=== PATIENT | male | born 1960 | race African-American/Black ===

== ENCOUNTER 2016-11-29 07:59 | Emergency (ER) | payer SELFPAY ==
[~2016-11-29] VITALS: Ht 188 cm; Wt 122.0 kg
[~2016-11-29 07:59] MED LIST: NO HOME MEDS
[2016-11-29 08:21] VITALS: BP 149/83
[2016-11-29] MEDS ORDERED: BALANCED SALT IRRIG SOLN 15ML IO ONE (09:30)
[2016-11-29] MEDS ORDERED: FLUORESCEIN SODIUM 1MG/STRIP OP ONE ×2 (09:30→10:30)
[2016-11-29] MEDS ORDERED: TETRACAINE 0.5% OPHTH DROPS 4ML OP ONE (09:30)
== END 2016-11-29 11:02 | disposition home or self-care (01) ==
LOC: ER 10:39
DX: H57.8 Other specified disorders of eye and adnexa (principal); Z88.0 Allergy status to penicillin
CPT/HCPCS: 99284; X7700; Z7610

== ENCOUNTER 2017-01-14 20:12 | Emergency (ER) | payer SELFPAY ==
[~2017-01-14] VITALS: Ht 188 cm; Wt 121.0 kg
[2017-01-15] MEDS ORDERED: TETRACAINE 0.5% OPHTH DROPS 4ML OP ONE (00:30)
[2017-01-15] MEDS ORDERED: FLUORESCEIN SODIUM 1MG/STRIP OP ONE (00:30)
[2017-01-15 02:15] VITALS: BP 118/78
== END 2017-01-15 02:40 | disposition home or self-care (01) ==
LOC: ER 20:12
DX: H43.391 Other vitreous opacities, right eye (principal); Z88.0 Allergy status to penicillin
CPT/HCPCS: 99283

== ENCOUNTER 2017-03-30 10:53 | Emergency (ER) | payer MEDICAID, OTHER ==
[~2017-03-30] VITALS: Ht 188 cm; Wt 123.0 kg
[2017-03-30 12:37] VITALS: BP 138/79
== END 2017-03-30 14:30 | disposition home or self-care (01) ==
LOC: ER 14:15
DX: R42 Dizziness and giddiness (principal); Z88.0 Allergy status to penicillin
CPT/HCPCS: 99283

== ENCOUNTER 2019-03-30 17:55 | Emergency (ER) | payer MEDICAID, OTHER ==
[~2019-03-30] VITALS: Ht 190.5 cm; Wt 116.0 kg
[2019-03-30 18:23] VITALS: BP 132/92
== END 2019-03-30 21:59 | disposition left against medical advice (07) ==
LOC: ER 18:32
DX: R07.9 Chest pain, unspecified (principal); Z53.21 Procedure and treatment not carried out due to patient leaving prior to being seen by health care provider

== ENCOUNTER 2019-04-15 02:09 | Emergency (ER) | payer MEDICAID ==
[~2019-04-15] VITALS: Ht 188 cm; Wt 123.0 kg
[2019-04-15] MEDS ORDERED: MAGNESIUM/ALUMINUM HYDROXIDE/SIMETHICONE 30ML UDC PO ONE (04:30)
[2019-04-15] MEDS ORDERED: ASPIRIN 325MG TABLET PO ONE (04:30)
[2019-04-15] MEDS ORDERED: VISCOUS LIDOCAINE 2% 15 ML UDC PO ONE (04:30)
[2019-04-15 04:59] LABS: BASOPHILS % 0.8 % (0.0-2.0); EOSINOPHILS % 3.6 % (0.0-5.0); HEMATOCRIT. 36.3 % (42.0-52.0); HEMOGLOBIN. 11.8 g/dL (14.0-18.0); LYMPHOCYTES % 25.1 % (20.0-50.0); MEAN CORPUSCULAR HEMOGLOBIN 22.9 pg (28.0-32.0); MEAN CORPUSCULAR VOLUME 70.6 fL (80.0-94.0); MEAN PLATELET VOLUME 7.6 fl (7.4-10.4); NEUTROPHILS % 59.5 % (40.0-76.0); PLATELET 197 x1000/uL (130-400); RED BLOOD CELL COUNT 5.15 mill/uL (4.7-6.1); RED CELL DISTRIBUTION WIDTH 16.9 % (11.6-14.6)
[2019-04-15 05:00] VITALS: BP 135/94
[2019-04-15 05:06] LABS: CHLORIDE 107 mEq/L (98-107)
== END 2019-04-15 06:56 | disposition home or self-care (01) ==
LOC: ER 02:09
DX: R07.2 Precordial pain (principal); D50.9 Iron deficiency anemia, unspecified; Z85.038 Personal history of other malignant neoplasm of large intestine; Z98.890 Other specified postprocedural states
CPT/HCPCS: 36415; 71045; 83880; 84484; 93005; 99284